=== PATIENT | female | born 1995 | race Two or more races ===

== ENCOUNTER 2024-08-10 18:55 | Emergency (ER) | payer OTHER ==
[2024-08-10 19:08] VITALS: BP 125/82; PULSE 81; RESP 18; TEMP 98.4; BMI 35.3
[2024-08-10] MEDS ORDERED: ACETAMINOPHEN 500 MG TABLET (FP) ONE (21:02)
[2024-08-10] MEDS: ACETAMINOPHEN 500 MG TABLET (FP) PO ONE (21:06)
[2024-08-10 21:21] LABS: BASO % 0.8 % (0-2.0); HEMATOCRIT 37.5 % (32.4-45.2); HEMOGLOBIN 12.5 GM/dL (10.7-15.3); LYMPH % 19.3 % (8-40); MCH 30.1 pg (25.7-33.7); MCHC 33.5 g/dl (32.0-36.0); MEAN CELL VOLUME 89.9 fl (80-96); MEAN PLT VOLUME 7.7 fl (7.5-11.1); MONO % 5.7 % (3.8-10.2); NEUT % 73.2 % (42.8-82.8); PLATELET COUNT 242 10^3/uL (134-434); RBC 4.17 M/mm3 (3.60-5.2); RDW 13.3 % (11.6-15.6); WHITE BLOOD COUNT 8.6 K/mm3 (4.0-10.0)
[2024-08-10 21:48] LABS: POTASSIUM 4.3 mmol/L (3.5-5.1)
[2024-08-10 21:50] LABS: CALCIUM 9.2 mg/dL (8.5-10.1)
[2024-08-10 21:51] LABS: ALBUMIN 3.5 g/dl (3.4-5.0); BLOOD UREA NITROGEN 8.3 mg/dL (7-18)
[2024-08-10 21:54] LABS: CREATININE 0.6 mg/dL (0.55-1.3)
[2024-08-10 21:55] LABS: BILIRUBIN,TOTAL 0.3 mg/dL (0.2-1)
[2024-08-10 21:56] LABS: TOT PROT 7.1 g/dl (6.4-8.2)
[2024-08-10 22:58] LABS: ERYTHROCYTE SEDIMENTATION RATE 27 mm/hr (0-20)
== END 2024-08-10 22:10 | disposition home or self-care (01) ==
LOC: JER 18:55
DX: O99.711 Diseases of the skin and subcutaneous tissue complicating pregnancy, first trimester (principal); L52 Erythema nodosum; Z3A.10 10 weeks gestation of pregnancy
CPT/HCPCS: 36415; 80053; 85025; 85651; 86140; 99283-25